=== PATIENT | male | born 1985 | race Caucasian/White ===

== ENCOUNTER 2016-07-01 09:17 | Emergency (ER) | payer SELFPAY ==
[~2016-07-01] VITALS: Ht 172.7 cm; Wt 90.0 kg
[2016-07-01 09:21] VITALS: Ht 172.7 cm; Wt 90.0 kg
--- NOTE | 2016-07-01 10:59 | ERD ---
ER Documentation Chief Complaint Date/Time DATE: 07/01/16 TIME: 10:56 Chief Complaint FEELS SOMETHING IN LT EYE HPI This patient is a 30-year-old male presenting to the emergency department for foreign body sensation to his left eye which began yesterday after working on his truck. He looked in his eye and he did not see any foreign bodies. He has had some redness to his eye. He has had no discharge, fevers, chills, changes in vision or other symptoms at this time. There are no other alleviating or exacerbating factors at this time. ROS All systems reviewed and are negative except as per history of present illness. Medications Home Meds Active Scripts Ketotifen Fumarate (ZADITOR) 5 Ml Drops, 1 DROP OP DAILY, #1 BOTTLE Prov:BRANDI FORD PA-C 07/01/16 Allergies Allergies: Coded Allergies: No Known Allergy (Unverified , 07/01/16) PMhx/Soc History of Surgery: No (NO MEDICAL OR SURGICAL HX) Hx Alcohol Use: Yes (OCCASIONAL) Hx Substance Use: No Hx Tobacco Use: Yes (OCCASIONAL) FmHx Noncontributory for chief complaint Physical Exam Vitals Vital Signs Date Time Temp Pulse Resp B/P Pulse Ox O2 Delivery O2 Flow Rate FiO2 07/01/16 09:21 98.3 83 18 140/70 98 Physical Exam INITIAL VITAL SIGNS: Reviewed by me. GENERAL: Alert and interactive. No acute distress. HEAD: Head is normocephalic and atraumatic. EYES: EOMI. No scleral icterus. There is mild conjunctival injection in the left eye but no obvious foreign body visualized. ENT: Moist mucosa. NECK: Supple. Full range of motion. RESPIRATORY: Normal respiratory effort. Clear breath sounds bilaterally. No wheezing, rales, or rhonchi. CV: Regular rate and rhythm. Normal S1 S2. No S3 or S4. No murmurs. ABDOMEN: Soft, non-distended, non-tender. No guarding. No rebound. No masses. EXTREMITIES: No deformity. SKIN: Warm and dry. NEUROLOGIC: Alert and oriented x 4. Speech is normal. Moves all extremities equally. No motor or sensory deficits noted. Results 24 hrs Current Medications Medications (Trade) Dose Ordered Sig/Daria Route PRN Reason Start Time Stop Time Status Last Admin Dose Admin Tetracaine HCl (Tetracaine 0.5% Oph) 1 drop ONCE ONCE LEFT EYE 07/01/16 11:00 07/01/16 11:01 DC Fluorescein Sodium (Kyply-R-Atbgi) 1 strip ONCE ONCE LEFT EYE 07/01/16 11:00 07/01/16 11:01 DC Procedures/MDM EMERGENCY DEPARTMENT COURSE / MEDICAL DECISION MAKING: This is a 30-year-old male who comes to the emergency room secondary to complaints of foreign body in his left eye. On physical examination there is no obvious foreign body but I will do a Yost lamp examination to examine further. Eye Exam w/ Wood's lamp: Visual Acuity: 20 out of 20 on the right, 20 out of 20 on the left, 20/ 20 bilaterally. Visual Cormier: Intact in all four quadrants bilaterally Lac ducts/glands: No swelling Lids w/ eversion: Normal, no foreign body Conj/[place]: Clear, negative Fluorescein/Hali's Anterior Chamber: Clear Retina exam: No obvious abnormality I believe the reason for the patient's symptoms are allergic conjunctivitis versus eye irritation. There are no signs for orbital cellulitis, bacterial conjunctivitis or other acute abnormalities. Discharge: I have discussed the diagnostic findings with the patient and answered any questions or concerns. The patient was discharged with a prescription for Zaditor to be used only as needed for eye irritation. The patient was advised to followup with their PMD in 1-2 days and to return to the ED if there are any new or worsening symptoms. The patient understood and agreed with treatment and plan. The patient is stable for discharge. Departure Diagnosis: Primary Impression: Eye injury Additional Impressions: Pain in eye Allergic conjunctivitis Condition: Stable Patient Instructions: Conjunctivitis, Allergic Additional Instructions: Follow-up with your primary care physician within 1 week. Return to the emergency department immediately should you have any new or worsening symptoms, uncontrolled fevers, or other unexplained symptoms. Take all medications as directed. BRANDI FORD PA-C Jul 01, 2016 10:59
[2016-07-01] MEDS ORDERED: FLUORESCEIN STRIP LEFT EYE ONE (11:00)
[2016-07-01] MEDS ORDERED: TETRACAINE 0.5% 15 ML OPH LEFT EYE ONE (11:00)
[2016-07-01] MEDS ORDERED: KETO5DRO58 OP (11:19)
== END 2016-07-01 12:06 | disposition home or self-care (01) ==
LOC: FTE 09:17
DX: S05.92XA Unspecified injury of left eye and orbit, initial encounter (principal); F17.210 Nicotine dependence, cigarettes, uncomplicated; H10.45 Other chronic allergic conjunctivitis; X58.XXXA Exposure to other specified factors, initial encounter; Y92.89 Other specified places as the place of occurrence of the external cause
CPT/HCPCS: 99283

== ENCOUNTER 2018-01-06 15:42 | Emergency (ER) | END 2018-01-06 17:00 | disposition home or self-care (01) ==